=== PATIENT | male | born 1985 | race Caucasian/White ===

== ENCOUNTER 2022-08-29 15:45 | Emergency (ER) | payer MEDICAID ==
[~2022-08-29] VITALS: Ht 167.6 cm; Wt 77.1 kg
[2022-08-29 16:17] VITALS: BP 136/65
--- NOTE | 2022-08-29 16:17 | NUR ---
BIBA TO ER BED 7
--- NOTE | 2022-08-29 16:30 | NUR ---
patient changed to hospital gown. personal belongings give to security for safety.
[2022-08-29 17:06] LABS: BASOPHILS % (AUTO) 0.6 % (0.0-2.0); EOSINOPHILS # (AUTO) 0.1 K/uL (0-0.4); EOSINOPHILS % (AUTO) 1.7 % (0.0-4.0); HEMOGLOBIN 13.7 g/dL (12.0-18.0); LYMPHOCYTES % (AUTO) 41.7 % (20.5-51.1); MEAN CORPUSCULAR HEMOGLOBIN 30 pg (27-31); MEAN CORPUSCULAR HGB CONC 34 g/dL (33-37); MEAN CORPUSCULAR VOLUME 87.8 fL (80-94); MONOCYTES # (AUTO) 0.6 K/uL (0.8-1.0); MONOCYTES % (AUTO) 11.6 % (1.7-9.3); NEUTROPHILS # (AUTO) 2.2 K/uL (1.8-7.7); NEUTROPHILS % (AUTO) 44.4 % (42.2-75.2); PLATELET COUNT (AUTO) 244 K/uL (140-450); RED BLOOD CELL COUNT(AUTO) 4.56 MIL/uL (4.20-6.10); RED CELL DISTRIBUTION WIDTH 14.2 % (11.6-13.7); WHITE BLOOD COUNT (AUTO) 4.9 K/uL (4.8-10.8)
[2022-08-29 17:36] LABS: ALBUMIN 4.1 g/dL (3.4-5.0); ANION GAP 15.4 (8-16); ASPARTATE AMINOTRANSFERASE 58 U/L (15-37); CARBON DIOXIDE 27.6 mmol/L (21-32); CHLORIDE 103 mmol/L (98-107); CREATININE 1.4 mg/dL (0.6-1.3); GFR ARICAN-AMERICAN 73 mL/min (>90); GLUCOSE 88 mg/dL (74-106); SALICYLATE < 2.8 mg/dL (2.8-20.0); SODIUM SERUM 142 mmol/L (136-145); TOTAL BILIRUBIN 0.7 mg/dL (0.0-1.0); UREA NITROGEN, BLOOD 17 mg/dL (7-18)
[2022-08-29 17:38] LABS: ACETAMINOPHEN < 0.5 ug/ml (10-30)
[2022-08-29 18:35] LABS: BARBITURATE, URINE NEGATIVE ng/ml (NEG <=200); BENZODIAZEPINE, URINE NEGATIVE ng/mL (NEG <=200); CANNABINOID, URINE NEGATIVE ng/mL (NEG <=50); COCAINE, URINE NEGATIVE ng/mL (NEG <=300); OPIATE, URINE NEGATIVE ng/mL (NEG <=2000); PHENCYCLIDINE SCREEN,URINE NEGATIVE ng/mL (NEG <=25)
--- NOTE | 2022-08-29 19:58 | NUR ---
PT IS UP AND PACING AROUND ROOM. RESP EVEN AND UNLABORED. IS SPEAKING ON RADOM TOPICS. FOOD PROVIDED TO PT. PENDING TRANSFER PT IS MEDICALLY CLEARED. BED AT LOWEST LEVEL SIDE RAILS UP X2. Q15 SI CHECKS .
--- NOTE | 2022-08-29 22:09 | NUR ---
PT SITTING IN BED TALKING TO SELF. RESP EVEN AND UNLABORED.
[2022-08-29] MEDS ORDERED: OLANZapine 5 MG ODT SL ONE (22:30)
--- NOTE | 2022-08-29 23:01 | NUR ---
PT REFUSING TO TAKE MEDS. WILL TRY AGIAN TO GET PT TO TAKE MEDS
--- NOTE | 2022-08-29 23:33 | NUR ---
2ND ATTEMPT TO GIVE MEDS PT REFUSING.
--- NOTE | 2022-08-29 23:50 | NUR ---
PT SLEEPING WITH HOB ELEVATED.
--- NOTE | 2022-08-30 02:10 | NUR ---
PT SLEEPING WITH HOB ELEVATED. RESP EVEN AND UNLABORED. PT IN VIEW FROM NURSING STATION
--- NOTE | 2022-08-30 04:26 | NUR ---
PT SLEEPING RESP EVEN AND UNLABORED.
--- NOTE | 2022-08-30 07:25 | NUR ---
REPORT RECEIVED FROM ALEJANDRO CARMEN. ASSUMED CARE AT THIS TIME
--- NOTE | 2022-08-30 07:36 | NUR ---
pt at rest w/ eyes closed. in view, bed at lowest position, bed rails upx2
--- NOTE | 2022-08-30 07:44 | NUR ---
pt provided w/ breakfast. pt awake and in eating in bed
[2022-08-30 08:25] VITALS: BP 131/77
--- NOTE | 2022-08-30 09:36 | NUR ---
pt provided w/ hygiene products. left at bedside
--- NOTE | 2022-08-30 11:16 | NUR ---
PT ON TELEPSYCH EVALUATION W/ MD LEON
--- NOTE | 2022-08-30 11:24 | NUR ---
PER MD LEON, PT TAKEN OFF SHANTE CERON D/C. ERMD MADE AWARE Addendum: 08/30/22 at 1125 by [facility] [employer] CALLED FOR PB
--- NOTE | 2022-08-30 11:40 | NUR ---
Patient discharged with v/s stable. Ambulatory with steady gait. LEFT WITHOUT PAPERWORK. PROVIDED WITH SCRUB TOP.
== END 2022-08-30 11:40 | disposition home or self-care (01) ==
LOC: MED 15:45
DX: F15.10 Other stimulant abuse, uncomplicated (principal); Z20.822 Contact with and (suspected) exposure to COVID-19; F20.9 Schizophrenia, unspecified; F31.9 Bipolar disorder, unspecified
CPT/HCPCS: 36415; 80053; 80305; 82550; 82553; 85025; 87426; 87635; 99285; C9803; G0480; G0482